=== PATIENT | male | born 1975 | race Caucasian/White ===

== ENCOUNTER 2017-04-26 18:31 | Inpatient (IN) | payer OTHER ==
[~2017-04-26] VITALS: Ht 172.7 cm; Wt 101.2 kg
[2017-04-26] MEDS ORDERED: FAMOTIDINE 20MG/2ML VIAL IV STA (22:36)
[2017-04-26] MEDS ORDERED: PANTOPRAZOLE SODIUM 40 MG/VIAL IV STA (22:36)
[2017-04-26] MEDS ORDERED: OCTREOTIDE ACETATE 50 MCG/ML 1ML IV ONE (22:45)
[2017-04-26 23:37] LABS: BASOPHILS % 0.7 % (0.0-2.0); EOSINOPHILS % 6.9 % (0.0-5.0); HEMATOCRIT. 26.8 % (42.0-52.0); HEMOGLOBIN. 9.4 g/dL (14.0-18.0); LYMPHOCYTES % 32.5 % (20.0-50.0); MEAN CORPUSCULAR HEMOGLOBIN 31.2 pg (28.0-32.0); MEAN CORPUSCULAR VOLUME 89.3 fL (80.0-94.0); MEAN PLATELET VOLUME 7.8 fl (7.4-10.4); NEUTROPHILS % 50.9 % (40.0-76.0); PLATELET 93 x1000/uL (130-400); RED CELL DISTRIBUTION WIDTH 13.4 % (11.6-14.6)
[2017-04-26 23:43] LABS: INR 1.1; PROTHROMBIN TIME 11.6 sec (9.4-11.6)
[2017-04-26 23:53] LABS: CARBON DIOXIDE 23 mEq/L (21-32); CHLORIDE 110 mEq/L (98-107); ETHANOL BLOOD < 10 mg/dL; TROPONIN I < 0.02 ng/mL (0.00-0.04)
[2017-04-27 05:15] LABS: CLARITY URINE CLEAR (CLEAR); COLOR URINE ORANGE (YELLOW); GLUCOSE URINE NEGATIVE (NEGATIVE); KETONES URINE NEGATIVE (NEGATIVE); LEUKOCYTE ESTERASE URINE NEGATIVE (NEGATIVE); NITRITE URINE NEGATIVE (NEGATIVE); OCCULT BLOOD URINE 3+ (NEGATIVE); PROTEIN URINE 2+ (NEGATIVE); UROBILINOGEN URINE 0.2 E.U./dL (0.2-1.0)
[2017-04-27 06:14] LABS: *AMPHETAMINES SCREEN URINE NEGATIVE (NEGATIVE); *BARBITURATES SCREEN URINE NEGATIVE (NEGATIVE); *BENZODIAZEPINES SCREEN URINE NEGATIVE (NEGATIVE); *COCAINE SCREEN URINE NEGATIVE (NEGATIVE); CANNABINOID URINE SCREEN NEGATIVE (NEGATIVE); METHADONE URINE SCREEN NEGATIVE (NEGATIVE); OPIATES URINE SCREEN NEGATIVE (NEGATIVE); PHENCYCLIDINE URINE SCREEN NEGATIVE (NEGATIVE)
[2017-04-27 08:20] VITALS: BP 157/72
[2017-04-27] MEDS ORDERED: PANTOPRAZOLE SODIUM 40 MG/VIAL IV SCH (10:15)
[2017-04-27 10:44] LABS: HEMATOCRIT 27.2 % (42.0-52.0); HEMOGLOBIN 9.5 g/dL (14.0-18.0)
[2017-04-27 10:48] LABS: *AMPHETAMINES SCREEN URINE NEGATIVE (NEGATIVE); *BARBITURATES SCREEN URINE NEGATIVE (NEGATIVE); *BENZODIAZEPINES SCREEN URINE NEGATIVE (NEGATIVE); *COCAINE SCREEN URINE NEGATIVE (NEGATIVE); CANNABINOID URINE SCREEN NEGATIVE (NEGATIVE); METHADONE URINE SCREEN NEGATIVE (NEGATIVE); OPIATES URINE SCREEN NEGATIVE (NEGATIVE); PHENCYCLIDINE URINE SCREEN NEGATIVE (NEGATIVE)
[2017-04-27 12:00] VITALS: BP 152/82
[2017-04-27 12:46] LABS: HEPATITIS B SURFACE ANTIGEN NEGATIVE
[2017-04-27 13:12] LABS: HEPATITIS B CORE AB IGM NEGATIVE
[2017-04-27 13:14] LABS: HEPATITIS A AB IGM NEGATIVE (NEGATIVE)
[2017-04-27] MEDS ORDERED: SODIUM CHLORIDE 0.9% 10ML VIAL ONE (13:56)
[2017-04-27 16:00] VITALS: BP 167/81
[2017-04-27] MEDS ORDERED: FENTANYL CITRATE/PF 50MCG/ML 2ML VIAL ONE (17:39)
[2017-04-27] MEDS ORDERED: SIMETHICONE 40 MG/0.6 ML 30ML ONE (17:39)
[2017-04-27] MEDS ORDERED: MIDAZOLAM HCL 5 MG/5 ML VIAL ONE (17:39)
[2017-04-27] MEDS ORDERED: MIDAZOLAM HCL 2 MG/2 ML VIAL IV PRN (17:53)
[2017-04-27] MEDS ORDERED: FENTANYL CITRATE/PF 50MCG/ML 2ML VIAL IV PRN (17:53)
[2017-04-27] MEDS ORDERED: OMEPRAZOLE 20MG CAPSULE EXTENDED RELEASE PO SCH (18:30)
[2017-04-27 20:00] VITALS: BP 153/69
[2017-04-27 20:01] LABS: HEMATOCRIT 27.7 % (42.0-52.0); HEMOGLOBIN 9.7 g/dL (14.0-18.0)
[2017-04-27] MEDS: CLOTRIMAZOLE 1% CREAM 30GM TOP SCH (21:04)
[2017-04-28] VITALS: BP 145/72
[2017-04-28 04:00] VITALS: BP 147/77
[2017-04-28] MEDS ORDERED: OMEPRAZOLE 20MG CAPSULE EXTENDED RELEASE PO SCH (07:10)
[2017-04-28 07:12] LABS: AMMONIA 27 uMol/L (<32)
[2017-04-28] MEDS ORDERED: ACETAMINOPHEN 325MG TABLET PO PRN (07:30)
[2017-04-28 07:44] LABS: BASOPHILS % 0.5 % (0.0-2.0); EOSINOPHILS % 5.2 % (0.0-5.0); HEMATOCRIT. 27.3 % (42.0-52.0); HEMOGLOBIN. 9.4 g/dL (14.0-18.0); MEAN CORPUSCULAR HEMOGLOBIN 30.8 pg (28.0-32.0); MEAN PLATELET VOLUME 8.5 fl (7.4-10.4); MONOCYTES % 8.4 % (2.0-8.0); NEUTROPHILS % 67.9 % (40.0-76.0); PLATELET 96 x1000/uL (130-400); RED BLOOD CELL COUNT 3.07 mill/uL (4.7-6.1); RED CELL DISTRIBUTION WIDTH 13.5 % (11.6-14.6)
[2017-04-28 08:00] VITALS: BP 139/88
[2017-04-28] MEDS: CLOTRIMAZOLE 1% CREAM 30GM TOP SCH (08:16)
[2017-04-28] MEDS ORDERED: OMEP20CA10 PO (10:48)
[2017-04-28] MEDS ORDERED: CLOT15CR2 TOP (10:48)
[2017-04-28 12:00] VITALS: BP 126/66
== END 2017-04-28 13:10 | disposition home or self-care (01) | DRG 241 ==
LOC: ER 18:31 → 8WST 23:20 → ENRESERV 04-27 07:09 → 8WST 04-27 09:24
PROVIDERS: ADMIT Internal Medicine; ATTEND Internal Medicine
PROC: 0DB68ZX Excision of Stomach, Via Natural or Artificial Opening Endoscopic, Diagnostic (ICD-10-PCS; principal; 2017-04-27 18:00)
DX: K29.01 Acute gastritis with bleeding (principal); N17.9 Acute kidney failure, unspecified; E44.0 Moderate protein-calorie malnutrition; K74.60 Unspecified cirrhosis of liver; K72.90 Hepatic failure, unspecified without coma; D64.9 Anemia, unspecified; N18.9 Chronic kidney disease, unspecified; G40.909 Epilepsy, unspecified, not intractable, without status epilepticus; F10.21 Alcohol dependence, in remission; F17.200 Nicotine dependence, unspecified, uncomplicated; Z79.899 Other long term (current) drug therapy; Z87.11 Personal history of peptic ulcer disease; Z68.39 Body mass index [BMI] 39.0-39.9, adult
CPT/HCPCS: 36415; 71010; 74176; 80048; 80053; 80076; 80305; 81001; 82140; 82270; 83605; 83690; 83880; 84484; 85014; 85018; 85025; 85044; 85610; 86677; 86705; 86709; 86803; 86850; 86900; 87340; 93005; 93970; 96374; 96375; 97116; 97162; 99285; A4216; C9113; G0482; J2250; J2354; J3010; J3490

== ENCOUNTER 2018-08-26 18:51 | Inpatient (IN) | payer OTHER ==
[~2018-08-26] VITALS: Ht 170.2 cm; Wt 91.2 kg
[~2018-08-26 18:51] MED LIST: AMLO5TAB88 PO; CLOT15CR2 TOP; FOLI-43 PO; KEPPSOL PO; LORA2VIA34 IM; NICO-786 TD; OMEP20CA10 PO; THIA100T72 PO
[2018-08-26 23:52] LABS: CLARITY URINE TURBID (CLEAR); COLOR URINE RED (YELLOW); KETONES URINE 1+ (NEGATIVE); LEUKOCYTE ESTERASE URINE 1+ (NEGATIVE); NITRITE URINE NEGATIVE (NEGATIVE); OCCULT BLOOD URINE 3+ (NEGATIVE); PROTEIN URINE 3+ (NEGATIVE); SPECIFIC GRAVITY URINE 1.014 (1.005-1.030)
[2018-08-27] MEDS ORDERED: ACETAMINOPHEN 325MG TABLET PO NR (00:45)
[2018-08-27] MEDS ORDERED: SODIUM CHLORIDE 0.9% 1000ML BAG (SEPSIS BOLUS) IV NR (00:45)
[2018-08-27] MEDS ORDERED: KETOROLAC 15MG/ML VIAL IV NR (00:45)
[2018-08-27] MEDS ORDERED: CEFTRIAXONE 1 G PREMIX 50 ML IV NR (01:30)
[2018-08-27] MEDS ORDERED: FLUCONAZOLE 50MG TABLET PO NR (01:30)
[2018-08-27 01:51] LABS: BASOPHILS % 0.3 % (0.0-2.0); HEMATOCRIT. 29.8 % (42.0-52.0); HEMOGLOBIN. 10.5 g/dL (14.0-18.0); LYMPHOCYTES % 10.7 % (20.0-50.0); MEAN CORPUSCULAR HEMOGLOBIN 32.1 pg (28.0-32.0); MEAN CORPUSCULAR VOLUME 91.4 fL (80.0-94.0); MONOCYTES % 12.6 % (2.0-8.0); NEUTROPHILS % 76.4 % (40.0-76.0); PLATELET 68 x1000/uL (130-400); RED BLOOD CELL COUNT 3.26 mill/uL (4.7-6.1); RED CELL DISTRIBUTION WIDTH 13.8 % (11.6-14.6)
[2018-08-27 02:01] LABS: INR 1.2; PROTHROMBIN TIME 12.1 sec (9.1-11.1)
[2018-08-27 02:02] LABS: CHLORIDE 111 mEq/L (98-107)
[2018-08-27 06:42] VITALS: BP 137/72
[2018-08-27 08:00] VITALS: BP 136/72
[2018-08-27 08:07] VITALS: BP 136/72
[2018-08-27] MEDS ORDERED: ONDANSETRON HCL 4MG/2ML INJ IV PRN (09:45)
[2018-08-27 11:36] LABS: *AMPHETAMINES SCREEN URINE NEGATIVE (NEGATIVE); *BARBITURATES SCREEN URINE NEGATIVE (NEGATIVE); *BENZODIAZEPINES SCREEN URINE NEGATIVE (NEGATIVE); *COCAINE SCREEN URINE NEGATIVE (NEGATIVE)
[2018-08-27 11:37] VITALS: BP 148/67
[2018-08-27 11:37] LABS: CANNABINOID URINE SCREEN NEGATIVE (NEGATIVE); METHADONE URINE SCREEN NEGATIVE (NEGATIVE); OPIATES URINE SCREEN NEGATIVE (NEGATIVE); PHENCYCLIDINE URINE SCREEN NEGATIVE (NEGATIVE)
[2018-08-27] MEDS: SODIUM CHLORIDE 0.45% 1,000 ML IV SCH (14:48)
[2018-08-27 15:36] VITALS: BP 149/76
[2018-08-27] MEDS: ACETAMINOPHEN 325MG TABLET PO PRN (15:48)
[2018-08-27 20:04] VITALS: BP 126/57
[2018-08-27] MEDS: LEVETIRACETAM 500MG TABLET PO SCH (21:37)
[2018-08-27] MEDS ORDERED: CEFTRIAXONE 1 G PREMIX 50 ML IV SCH (23:00)
[2018-08-28 00:40] VITALS: BP 150/68
[2018-08-28 04:00] VITALS: BP 135/68
[2018-08-28] MEDS: SODIUM CHLORIDE 0.45% 1,000 ML IV SCH ×2 (04:12→09:00)
[2018-08-28 06:55] LABS: HEMATOCRIT. 29.2 % (42.0-52.0); HEMOGLOBIN. 10.3 g/dL (14.0-18.0); MEAN CORPUSCULAR HEMOGLOBIN 31.9 pg (28.0-32.0); MEAN CORPUSCULAR VOLUME 90.4 fL (80.0-94.0); MEAN PLATELET VOLUME 8.1 fl (7.4-10.4); PLATELET 61 x1000/uL (130-400); RED BLOOD CELL COUNT 3.23 mill/uL (4.7-6.1); RED CELL DISTRIBUTION WIDTH 13.9 % (11.6-14.6)
[2018-08-28 07:03] LABS: CHLORIDE 111 mEq/L (98-107)
[2018-08-28 08:41] VITALS: BP 134/69
[2018-08-28] MEDS: LEVETIRACETAM 500MG TABLET PO SCH (09:20)
[2018-08-28] MEDS: ACETAMINOPHEN 325MG TABLET PO PRN (09:20)
[2018-08-28 12:16] VITALS: BP 141/64
[2018-08-28 13:00] LABS: ATYPICAL LYMPHOCYTES 2; PLATELET ESTIMATE DECREASED
[2018-08-28 16:18] VITALS: BP 117/57
[2018-08-28 16:29] VITALS: BP 117/57
== END 2018-08-28 17:44 | disposition home or self-care (01) | DRG 720 ==
LOC: ER 18:51 → 6WST 08-27 02:25 → EDBEDREQSVC 08-27 02:53 → EDBEDREQTM 08-27 02:53 → EDBEDREQ 08-27 02:53 → ENRESERV 08-27 05:30
PROVIDERS: ADMIT Internal Medicine; ATTEND Internal Medicine
DX: A41.9 Sepsis, unspecified organism (principal); N17.0 Acute kidney failure with tubular necrosis; D61.818 Other pancytopenia; E44.0 Moderate protein-calorie malnutrition; E87.8 Other disorders of electrolyte and fluid balance, not elsewhere classified; F10.21 Alcohol dependence, in remission; G40.909 Epilepsy, unspecified, not intractable, without status epilepticus; M94.0 Chondrocostal junction syndrome [Tietze]; N39.0 Urinary tract infection, site not specified; K70.30 Alcoholic cirrhosis of liver without ascites; Z87.440 Personal history of urinary (tract) infections; Z68.31 Body mass index [BMI] 31.0-31.9, adult
CPT/HCPCS: 36415; 71045; 80048; 80305; 83605; 84145; 84484; 87804; 93970; 96365; 96375; 99291; J0696; J1885

== ENCOUNTER 2018-10-26 11:13 | Inpatient (IN) | payer MEDICAID, OTHER ==
[~2018-10-26] VITALS: Ht 170.2 cm; Wt 93.4 kg
[~2018-10-26 11:13] MED LIST changes: -NICO-786 TD
[2018-10-26] MEDS ORDERED: LORAZEPAM 2MG/ML CPJ IV STA (12:02)
[2018-10-26 12:27] LABS: BASOPHILS % 1.1 % (0.0-2.0); EOSINOPHILS % 5.7 % (0.0-5.0); HEMATOCRIT. 30.2 % (42.0-52.0); HEMOGLOBIN. 10.2 g/dL (14.0-18.0); LYMPHOCYTES % 23.1 % (20.0-50.0); MEAN CORPUSCULAR HEMOGLOBIN 31.7 pg (28.0-32.0); MEAN CORPUSCULAR VOLUME 93.7 fL (80.0-94.0); MEAN PLATELET VOLUME 7.6 fl (7.4-10.4); MONOCYTES % 10.7 % (2.0-8.0); NEUTROPHILS % 59.4 % (40.0-76.0); PLATELET 134 x1000/uL (130-400); RED BLOOD CELL COUNT 3.22 mill/uL (4.7-6.1); RED CELL DISTRIBUTION WIDTH 14.4 % (11.6-14.6)
[2018-10-26 12:28] LABS: CLARITY URINE CLEAR (CLEAR); COLOR URINE YELLOW (YELLOW); KETONES URINE NEGATIVE (NEGATIVE); LEUKOCYTE ESTERASE URINE NEGATIVE (NEGATIVE); NITRITE URINE NEGATIVE (NEGATIVE); OCCULT BLOOD URINE 3+ (NEGATIVE); PH URINE 7.5 (4.5-8.0); PROTEIN URINE TRACE (NEGATIVE); SPECIFIC GRAVITY URINE 1.007 (1.005-1.030); UROBILINOGEN URINE 0.2 E.U./dL (0.2-1.0)
[2018-10-26 12:33] LABS: CHLORIDE 110 mEq/L (98-107)
[2018-10-26 12:37] LABS: ETHANOL BLOOD < 10 mg/dL
[2018-10-26 12:47] LABS: *AMPHETAMINES SCREEN URINE NEGATIVE (NEGATIVE); *BARBITURATES SCREEN URINE NEGATIVE (NEGATIVE); *BENZODIAZEPINES SCREEN URINE NEGATIVE (NEGATIVE); *COCAINE SCREEN URINE NEGATIVE (NEGATIVE)
[2018-10-26 12:48] LABS: CANNABINOID URINE SCREEN NEGATIVE (NEGATIVE); METHADONE URINE SCREEN NEGATIVE (NEGATIVE); OPIATES URINE SCREEN NEGATIVE (NEGATIVE); PHENCYCLIDINE URINE SCREEN NEGATIVE (NEGATIVE)
[2018-10-26 16:52] VITALS: BP 126/64
[2018-10-26 16:56] VITALS: BP 126/64
[2018-10-26] MEDS ORDERED: LEVE1000 PO (17:24)
[2018-10-26] MEDS ORDERED: LORAZEPAM 2MG/ML CPJ IV PRN (17:45)
[2018-10-26] MEDS ORDERED: ONDANSETRON HCL 4MG/2ML INJ IV PRN (17:45)
[2018-10-26] MEDS ORDERED: CLONIDINE 0.1MG TABLET PO PRN (17:45)
[2018-10-26 20:00] VITALS: BP 133/61
[2018-10-26] MEDS: LEVETIRACETAM 500MG/5ML CUP PO SCH (21:09)
[2018-10-27 00:01] VITALS: BP 122/58
[2018-10-27 04:00] VITALS: BP 125/67
[2018-10-27] MEDS: ACETAMINOPHEN 325MG TABLET PO PRN (05:42)
[2018-10-27 05:57] LABS: BASOPHILS % 0.8 % (0.0-2.0); EOSINOPHILS % 5.6 % (0.0-5.0); HEMATOCRIT. 27.2 % (42.0-52.0); HEMOGLOBIN. 9.4 g/dL (14.0-18.0); LYMPHOCYTES % 27.2 % (20.0-50.0); MEAN CORPUSCULAR HEMOGLOBIN 31.8 pg (28.0-32.0); MEAN CORPUSCULAR VOLUME 92.7 fL (80.0-94.0); MEAN PLATELET VOLUME 7.7 fl (7.4-10.4); MONOCYTES % 9.3 % (2.0-8.0); NEUTROPHILS % 57.1 % (40.0-76.0); PLATELET 123 x1000/uL (130-400); RED BLOOD CELL COUNT 2.94 mill/uL (4.7-6.1); RED CELL DISTRIBUTION WIDTH 14.6 % (11.6-14.6)
[2018-10-27 06:35] LABS: CHLORIDE 110 mEq/L (98-107)
[2018-10-27 08:00] VITALS: BP 120/52
[2018-10-27] MEDS: LEVETIRACETAM 500MG/5ML CUP PO SCH ×2 (09:22→20:56)
[2018-10-27 12:00] VITALS: BP 110/55
[2018-10-27 16:13] VITALS: BP 109/48
[2018-10-27] MEDS: THIAMINE HCL 100MG TABLET PO SCH (18:46)
[2018-10-27 20:00] VITALS: BP 127/60
[2018-10-27] MEDS: LAMOTRIGINE 25MG TABLET PO SCH (20:56)
[2018-10-28 00:05] VITALS: BP 121/62
[2018-10-28] MEDS: ACETAMINOPHEN 325MG TABLET PO PRN (02:10)
[2018-10-28 04:00] VITALS: BP 130/82
[2018-10-28 07:00] LABS: BASOPHILS % 0.7 % (0.0-2.0); EOSINOPHILS % 5.4 % (0.0-5.0); HEMOGLOBIN. 9.7 g/dL (14.0-18.0); LYMPHOCYTES % 21.7 % (20.0-50.0); MEAN CORPUSCULAR HEMOGLOBIN 32.3 pg (28.0-32.0); MEAN CORPUSCULAR VOLUME 93.1 fL (80.0-94.0); MEAN PLATELET VOLUME 8.3 fl (7.4-10.4); MONOCYTES % 9.5 % (2.0-8.0); NEUTROPHILS % 62.7 % (40.0-76.0); PLATELET 130 x1000/uL (130-400); RED BLOOD CELL COUNT 3.01 mill/uL (4.7-6.1); RED CELL DISTRIBUTION WIDTH 14.4 % (11.6-14.6)
[2018-10-28 07:06] LABS: CHLORIDE 109 mEq/L (98-107)
[2018-10-28 08:00] VITALS: BP 130/62
[2018-10-28] MEDS: LEVETIRACETAM 500MG/5ML CUP PO SCH (08:52)
[2018-10-28] MEDS: THIAMINE HCL 100MG TABLET PO SCH (08:52)
[2018-10-28] MEDS: LAMOTRIGINE 25MG TABLET PO SCH (08:53)
[2018-10-28 12:12] VITALS: BP 128/66
[2018-10-28 16:38] VITALS: BP 116/52
[2018-10-28 17:05] VITALS: BP 116/52
== END 2018-10-28 17:52 | disposition home or self-care (01) | DRG 53 ==
LOC: ER 11:13 → 7WST 14:06 → EDBEDREQ 14:17 → ENRESERV 14:58
PROVIDERS: ADMIT Internal Medicine; ATTEND Internal Medicine
DX: G40.909 Epilepsy, unspecified, not intractable, without status epilepticus (principal); E43 Unspecified severe protein-calorie malnutrition; E87.8 Other disorders of electrolyte and fluid balance, not elsewhere classified; D64.9 Anemia, unspecified; F10.21 Alcohol dependence, in remission; I10 Essential (primary) hypertension; F17.210 Nicotine dependence, cigarettes, uncomplicated; Z87.820 Personal history of traumatic brain injury; Z68.32 Body mass index [BMI] 32.0-32.9, adult
CPT/HCPCS: 36415; 71045; 80048; 80305; 80307; 80320; 80329; 82140; 82962; 83605; 83880; 84484; 93005; 96374; 97162; 99285; J2060; G0480

== ENCOUNTER 2018-11-05 16:07 | Emergency (ER) | payer OTHER ==
[~2018-11-05] VITALS: Ht 177.8 cm; Wt 85.0 kg
[~2018-11-05 16:07] MED LIST changes: -AMLO5TAB88 PO; -CLOT15CR2 TOP; -FOLI-43 PO; -KEPPSOL PO; +LEVE1000 PO; -LORA2VIA34 IM; -OMEP20CA10 PO; -THIA100T72 PO
[2018-11-05] MEDS ORDERED: SODIUM CHLORIDE 0.9% 1,000 ML IV ONE (16:24)
[2018-11-05] MEDS ORDERED: LEVETIRACETAM 1000MG/100ML 100 ML IV ONE (16:30)
[2018-11-05 17:10] LABS: BASOPHILS % 0.8 % (0.0-2.0); HEMATOCRIT. 29.9 % (42.0-52.0); HEMOGLOBIN. 10.3 g/dL (14.0-18.0); LYMPHOCYTES % 28.3 % (20.0-50.0); MEAN CORPUSCULAR HEMOGLOBIN 32.1 pg (28.0-32.0); MEAN CORPUSCULAR VOLUME 93.2 fL (80.0-94.0); MEAN PLATELET VOLUME 7.9 fl (7.4-10.4); MONOCYTES % 10.3 % (2.0-8.0); NEUTROPHILS % 53.6 % (40.0-76.0); PLATELET 122 x1000/uL (130-400); RED BLOOD CELL COUNT 3.21 mill/uL (4.7-6.1)
[2018-11-05 17:14] LABS: CLARITY URINE CLEAR (CLEAR); COLOR URINE YELLOW (YELLOW); KETONES URINE NEGATIVE (NEGATIVE); LEUKOCYTE ESTERASE URINE TRACE (NEGATIVE); NITRITE URINE NEGATIVE (NEGATIVE); OCCULT BLOOD URINE 3+ (NEGATIVE); PROTEIN URINE 1+ (NEGATIVE); SPECIFIC GRAVITY URINE 1.015 (1.005-1.030)
[2018-11-05 17:17] LABS: CHLORIDE 109 mEq/L (98-107); INR 1.1; PROTHROMBIN TIME 10.8 sec (9.1-11.1)
[2018-11-05 17:20] LABS: ETHANOL BLOOD < 10 mg/dL
[2018-11-05 17:23] LABS: LDL CHOLESTEROL 51 mg/dL (5-100)
[2018-11-05 17:24] LABS: *AMPHETAMINES SCREEN URINE NEGATIVE (NEGATIVE); *BARBITURATES SCREEN URINE NEGATIVE (NEGATIVE); *BENZODIAZEPINES SCREEN URINE NEGATIVE (NEGATIVE); *COCAINE SCREEN URINE NEGATIVE (NEGATIVE); CANNABINOID URINE SCREEN NEGATIVE (NEGATIVE); METHADONE URINE SCREEN NEGATIVE (NEGATIVE); OPIATES URINE SCREEN NEGATIVE (NEGATIVE); PHENCYCLIDINE URINE SCREEN NEGATIVE (NEGATIVE)
[2018-11-05] MEDS ORDERED: ASPIRIN 325MG TABLET PO ONE (17:45)
[2018-11-05] MEDS ORDERED: MORPHINE SULFATE 4 MG/ML CPJ (NOT FOR IM USE) IV ONE (20:15)
[2018-11-05] MEDS ORDERED: IOHEXOL-350 100 ML BOTTLE ONE (21:21)
[2018-11-05 22:52] VITALS: BP 122/98
== END 2018-11-05 23:17 | disposition short-term general hospital (02) ==
LOC: ER 16:08 → CANBEDREQ 11-06 01:19
DX: I67.82 Cerebral ischemia (principal); G81.94 Hemiplegia, unspecified affecting left nondominant side; R56.9 Unspecified convulsions; I10 Essential (primary) hypertension
CPT/HCPCS: 36415; 70450; 70496; 70498; 71045; 80053; 80305; 80320; 81003; 82962; 83721; 84484; 85025; 85610; 93005; 96365; 96366; 96375; 99291; J1953; J2270; J7030; Q9967; G0480

== ENCOUNTER 2019-06-06 17:25 | Emergency (ER) | payer OTHER ==
[~2019-06-06] VITALS: Ht 162.6 cm; Wt 89.0 kg
[2019-06-06] MEDS ORDERED: SODIUM CHLORIDE 0.9% 1,000 ML IV ONE (20:22)
[2019-06-06 20:42] LABS: BASOPHILS % 0.4 % (0.0-2.0); EOSINOPHILS % 3.6 % (0.0-5.0); HEMATOCRIT. 35.9 % (42.0-52.0); HEMOGLOBIN. 12.5 g/dL (14.0-18.0); LYMPHOCYTES % 14.7 % (20.0-50.0); MEAN CORPUSCULAR VOLUME 92.3 fL (80.0-94.0); MEAN PLATELET VOLUME 8.1 fl (7.4-10.4); MONOCYTES % 10.3 % (2.0-8.0); PLATELET 97 x1000/uL (130-400); RED BLOOD CELL COUNT 3.89 mill/uL (4.7-6.1); RED CELL DISTRIBUTION WIDTH 13.2 % (11.6-14.6)
[2019-06-06 20:47] LABS: CHLORIDE 112 mEq/L (98-107)
[2019-06-06 20:49] LABS: INR 1.1; PROTHROMBIN TIME 11.4 sec (9.6-11.0)
[2019-06-06 20:55] LABS: CLARITY URINE CLOUDY (CLEAR); COLOR URINE RED (YELLOW); KETONES URINE NEGATIVE (NEGATIVE); LEUKOCYTE ESTERASE URINE 1+ (NEGATIVE); NITRITE URINE NEGATIVE (NEGATIVE); OCCULT BLOOD URINE 3+ (NEGATIVE); PROTEIN URINE 3+ (NEGATIVE); SPECIFIC GRAVITY URINE 1.016 (1.005-1.030); UROBILINOGEN URINE 0.2 E.U./dL (0.2-1.0)
[2019-06-06] MEDS ORDERED: IBUPROFEN 600MG TABLET PO ONE (21:15)
[2019-06-06] MEDS ORDERED: CEFTRIAXONE SODIUM 250 MG/VIAL IM ONE (22:15)
[2019-06-06 23:17] VITALS: BP 131/94
[2019-07-05] MEDS ORDERED: GABA-531 MT (11:02)
[2019-07-05] MEDS ORDERED: CLOP75TA4 MT (11:02)
[2019-07-05] MEDS ORDERED: LEVE1000 MT (11:02)
== END 2019-06-06 23:18 | disposition home or self-care (01) ==
LOC: ER 17:25
DX: N12 Tubulo-interstitial nephritis, not specified as acute or chronic (principal); I10 Essential (primary) hypertension; Z98.890 Other specified postprocedural states; F17.290 Nicotine dependence, other tobacco product, uncomplicated
CPT/HCPCS: 36415; 76770; 80053; 81003; 83690; 85025; 85610; 96372; 99284; 99406; J0696; J7030; Z7610

== ENCOUNTER 2020-05-15 18:10 | Emergency (ER) | payer OTHER ==
[~2020-05-15] VITALS: Ht 170.2 cm; Wt 97.0 kg
[~2020-05-15 18:10] MED LIST changes: +CLOP75TA4 MT; +GABA-531 MT; +LEVE1000 MT
[2020-05-15 19:34] LABS: BASOPHILS % 0.5 % (0.0-2.0); EOSINOPHILS % 3.9 % (0.0-5.0); HEMATOCRIT. 33.9 % (42.0-52.0); HEMOGLOBIN. 11.9 g/dL (14.0-18.0); LYMPHOCYTES % 26.3 % (20.0-50.0); MEAN CORPUSCULAR HEMOGLOBIN 32.9 pg (28.0-32.0); MEAN CORPUSCULAR VOLUME 93.8 fL (80.0-94.0); MEAN PLATELET VOLUME 8.2 fl (7.4-10.4); MONOCYTES % 10.9 % (2.0-8.0); NEUTROPHILS % 58.4 % (40.0-76.0); PLATELET 141 x1000/uL (130-400); RED BLOOD CELL COUNT 3.62 mill/uL (4.7-6.1); RED CELL DISTRIBUTION WIDTH 13.2 % (11.6-14.6)
[2020-05-15 19:39] LABS: CHLORIDE 110 mEq/L (98-107); INR 1.1; PROTHROMBIN TIME 11.3 sec (9.6-11.0)
[2020-05-15 19:43] LABS: ETHANOL BLOOD < 10 mg/dL
[2020-05-15 19:43] LABS: CLARITY URINE CLEAR (CLEAR); COLOR URINE YELLOW (YELLOW); KETONES URINE NEGATIVE (NEGATIVE); LEUKOCYTE ESTERASE URINE TRACE (NEGATIVE); NITRITE URINE NEGATIVE (NEGATIVE); OCCULT BLOOD URINE 3+ (NEGATIVE); PROTEIN URINE 3+ (NEGATIVE); SPECIFIC GRAVITY URINE 1.022 (1.005-1.030)
[2020-05-15 19:59] LABS: *AMPHETAMINES SCREEN URINE NEGATIVE (NEGATIVE); *BARBITURATES SCREEN URINE NEGATIVE (NEGATIVE); *BENZODIAZEPINES SCREEN URINE PRESUMTIVE POSITIVE (NEGATIVE)
[2020-05-15 20:00] LABS: *COCAINE SCREEN URINE NEGATIVE (NEGATIVE); CANNABINOID URINE SCREEN NEGATIVE (NEGATIVE); METHADONE URINE SCREEN NEGATIVE (NEGATIVE); OPIATES URINE SCREEN NEGATIVE (NEGATIVE); PHENCYCLIDINE URINE SCREEN NEGATIVE (NEGATIVE)
[2020-05-15] MEDS ORDERED: SODIUM CHLORIDE 0.9% 1,000 ML IV ONE (22:00)
[2020-05-16 01:44] VITALS: BP 171/83
== END 2020-05-16 02:35 | disposition short-term general hospital (02) ==
LOC: ER 18:10
DX: R41.82 Altered mental status, unspecified (principal); R56.9 Unspecified convulsions; Z98.890 Other specified postprocedural states
CPT/HCPCS: 36415; 70450; 71045; 74176; 80053; 80305; 80320; 81003; 85025; 85610; 93005; 96360; 96361; 99285; J7030; G0480

== ENCOUNTER 2022-08-12 09:24 | Inpatient (IN) | payer MEDICAID, OTHER ==
[~2022-08-12] VITALS: Ht 160 cm; Wt 103.9 kg
[~2022-08-12 09:24] MED LIST changes: +CLOP-31 MT; -CLOP75TA4 MT; -GABA-531 MT; +GABA-532 MT
[2022-08-12 12:03] LABS: BASOPHILS % 0.7 % (0.0-2.0); EOSINOPHILS % 6.1 % (0.0-5.0); HEMATOCRIT. 29.2 % (42.0-52.0); HEMOGLOBIN. 10.3 g/dL (14.0-18.0); LYMPHOCYTES % 17.9 % (20.0-50.0); MEAN CORPUSCULAR HEMOGLOBIN 32.8 pg (28.0-32.0); MEAN CORPUSCULAR VOLUME 92.5 fL (80.0-94.0); MEAN PLATELET VOLUME 6.6 fl (7.4-10.4); MONOCYTES % 12.5 % (2.0-8.0); NEUTROPHILS % 62.8 % (40.0-76.0); PLATELET 138 x1000/uL (130-400); RED BLOOD CELL COUNT 3.15 mill/uL (4.7-6.1); RED CELL DISTRIBUTION WIDTH 14.8 % (11.6-14.6)
[2022-08-12 12:10] LABS: CHLORIDE 111 mEq/L (98-107)
[2022-08-12 12:23] LABS: INR 1.1; PARTIAL THROMBOPLASTIN TIME 29.5 sec (23.4-31.0); PROTHROMBIN TIME 11.4 sec (9.6-11.0)
[2022-08-12] MEDS ORDERED: FUROSEMIDE 40MG/4ML VIAL IVP ONE (12:30)
[2022-08-13] VITALS (7 sets, daily range): BP systolic 124–154; BP diastolic 60–88
[2022-08-13] MEDS ORDERED: LEVE1000 PO (00:51)
[2022-08-13] MEDS: ACETAMINOPHEN 325MG TABLET PO PRN ×2 (06:24→09:09)
[2022-08-13 06:55] LABS: BASOPHILS % 0.7 % (0.0-2.0); EOSINOPHILS % 6.7 % (0.0-5.0); HEMATOCRIT. 26.6 % (42.0-52.0); HEMOGLOBIN. 9.5 g/dL (14.0-18.0); LYMPHOCYTES % 20.5 % (20.0-50.0); MEAN CORPUSCULAR HEMOGLOBIN 32.3 pg (28.0-32.0); MEAN CORPUSCULAR VOLUME 90.7 fL (80.0-94.0); MEAN PLATELET VOLUME 6.8 fl (7.4-10.4); MONOCYTES % 12.5 % (2.0-8.0); NEUTROPHILS % 59.6 % (40.0-76.0); PLATELET 109 x1000/uL (130-400); RED BLOOD CELL COUNT 2.93 mill/uL (4.7-6.1); RED CELL DISTRIBUTION WIDTH 14.7 % (11.6-14.6)
[2022-08-13] MEDS ORDERED: FUROSEMIDE 40MG TABLET PO SCH (09:00)
[2022-08-13] MEDS: LEVETIRACETAM 500MG TABLET PO SCH ×2 (09:08→21:02)
[2022-08-13] MEDS: PANTOPRAZOLE SODIUM 40 MG/VIAL IV SCH (09:10)
[2022-08-13] MEDS: SPIRONOLACTONE 50MG TABLET PO SCH (09:10)
[2022-08-13] MEDS: FUROSEMIDE 40MG/4ML VIAL IVP SCH ×2 (09:19→18:35)
[2022-08-13] MEDS ORDERED: CEFTRIAXONE 1 G PREMIX 50 ML IV SCH (13:15)
[2022-08-13] MEDS ORDERED: CEFTRIAXONE 1,000 MG in DEXTROSE 5% WATER 50 ML IV SCH (15:00)
[2022-08-13 15:13] LABS: CLARITY URINE CLEAR (CLEAR); COLOR URINE YELLOW (YELLOW); KETONES URINE NEGATIVE (NEGATIVE); LEUKOCYTE ESTERASE URINE NEGATIVE (NEGATIVE); NITRITE URINE NEGATIVE (NEGATIVE); OCCULT BLOOD URINE 3+ (NEGATIVE); PROTEIN URINE 1+ (NEGATIVE); SPECIFIC GRAVITY URINE 1.011 (1.005-1.030); UROBILINOGEN URINE 0.2 E.U./dL (0.2-1.0)
[2022-08-13] MEDS: CEFTRIAXONE 1,000 MG in DEXTROSE 5% WATER 50 ML IV SCH (21:02)
[2022-08-14] VITALS: BP 156/98
[2022-08-14] MEDS: ACETAMINOPHEN 325MG TABLET PO PRN ×3 (00:52→23:46)
[2022-08-14 04:00] VITALS: BP 159/88
[2022-08-14 08:00] VITALS: BP 147/75
[2022-08-14] MEDS: SPIRONOLACTONE 50MG TABLET PO SCH (09:00)
[2022-08-14] MEDS: LEVETIRACETAM 500MG TABLET PO SCH ×2 (11:15→20:47)
[2022-08-14] MEDS: PANTOPRAZOLE SODIUM 40 MG/VIAL IV SCH (11:17)
[2022-08-14] MEDS: FUROSEMIDE 40MG/4ML VIAL IVP SCH ×2 (11:19→18:08)
[2022-08-14 12:00] VITALS: BP 135/70
[2022-08-14 16:00] VITALS: BP 158/79
[2022-08-14 20:00] VITALS: BP 164/97
[2022-08-14] MEDS: CEFTRIAXONE 1,000 MG in DEXTROSE 5% WATER 50 ML IV SCH (20:48)
[2022-08-15] VITALS: BP 150/72
[2022-08-15 04:00] VITALS: BP 160/83
[2022-08-15 08:00] VITALS: BP 161/92
[2022-08-15] MEDS: ACETAMINOPHEN 325MG TABLET PO PRN (08:05)
[2022-08-15] MEDS: PANTOPRAZOLE SODIUM 40 MG/VIAL IV SCH (08:05)
[2022-08-15] MEDS: LEVETIRACETAM 500MG TABLET PO SCH (08:05)
[2022-08-15] MEDS: FUROSEMIDE 40MG/4ML VIAL IVP SCH (08:05)
[2022-08-15] MEDS ORDERED: LIDOCAINE HCL 1% 10 MG/ML 10ML VIAL ONE (08:07)
[2022-08-15] MEDS ORDERED: SODIUM BICARBONATE 4% (2.4MEQ) 5ML VIAL IV ONE (08:07)
[2022-08-15] MEDS: SPIRONOLACTONE 50MG TABLET PO SCH (08:11)
[2022-08-15] MEDS ORDERED: FURO-151 MT (08:39)
[2022-08-15] MEDS ORDERED: ALD50 PO (08:39)
[2022-08-15 11:18] VITALS: BP 154/86
[2022-08-15 12:00] VITALS: BP 154/86
== END 2022-08-15 12:30 | disposition home or self-care (01) ==
LOC: ER 09:24 → EDBEDREQ 12:58 → EDBEDREQTM 15:56 → EDBEDREQ 15:56 → ENRESERV 22:36 → 7EST 23:40
PROVIDERS: ADMIT Internal Medicine; ATTEND Internal Medicine
PROC: 0W9G3ZZ Drainage of Peritoneal Cavity, Percutaneous Approach (ICD-10-PCS; principal; 2022-08-15)
DX: K74.60 Unspecified cirrhosis of liver (principal); R18.8 Other ascites; E87.70 Fluid overload, unspecified; G40.909 Epilepsy, unspecified, not intractable, without status epilepticus; D72.819 Decreased white blood cell count, unspecified; D64.9 Anemia, unspecified; Z20.822 Contact with and (suspected) exposure to COVID-19; E66.9 Obesity, unspecified; Z68.41 Body mass index [BMI] 40.0-44.9, adult; Z86.73 Personal history of transient ischemic attack (TIA), and cerebral infarction without residual deficits; Z79.02 Long term (current) use of antithrombotics/antiplatelets
CPT/HCPCS: 36415; 49083; 71045; 74176; 80048; 80053; 81003; 83880; 84484; 85025; 86850; 86900; 87426; 93005; 93970; 99285; C9113; J0696; J1940; J3490; J7060

== ENCOUNTER 2024-03-21 18:25 | Emergency (ER) | payer MEDICAID, OTHER ==
[~2024-03-21] VITALS: Ht 172.7 cm; Wt 91.0 kg
[~2024-03-21 18:25] MED LIST changes: +ALD50 PO; +FURO-151 MT
[2024-03-21 18:34] VITALS: O2SAT 97
[2024-03-21 19:45] LABS: BASOPHILS % 0.4 % (0.0-2.0); EOSINOPHILS % 2.9 % (0.0-5.0); HEMOGLOBIN. 12.6 g/dL (14.0-18.0); LYMPHOCYTES % 20.7 % (20.0-50.0); MEAN CORPUSCULAR HEMOGLOBIN 33.2 pg (28.0-32.0); MEAN CORPUSCULAR HGB CONC 34.1 g/dL (31.0-37.0); MEAN CORPUSCULAR VOLUME 97.4 fL (80.0-94.0); MEAN PLATELET VOLUME 7.4 fl (7.4-10.4); MONOCYTES % 12.5 % (2.0-8.0); NEUTROPHILS % 63.5 % (40.0-76.0); PLATELET 116 x1000/uL (130-400); RED BLOOD CELL COUNT 3.79 mill/uL (4.7-6.1); RED CELL DISTRIBUTION WIDTH 14.8 % (11.6-14.6); WHITE BLOOD COUNT 4.4 x1000/uL (4.5-11.0)
[2024-03-21 19:50] LABS: POTASSIUM 5.7 mEq/L (3.5-5.1)
[2024-03-21 19:51] LABS: CALCIUM 9.8 mg/dL (8.7-10.4)
[2024-03-21 20:24] LABS: CREATININE 7.7 mg/dL (0.6-1.3)
[2024-03-21] MEDS: DEXTROSE 50% WATER 50ML SYRINGE IV ONE (21:30)
[2024-03-21] MEDS ORDERED: CALCIUM GLUCONATE 1,000 MG in DEXT 5% WATER 100 ML IV ONE (21:30)
[2024-03-21] MEDS: ALBUTEROL (0.083%) 2.5MG/3ML NEB HHN SCH (21:30)
[2024-03-21] MEDS ORDERED: INSULIN REGULAR (HUMULIN R) 1000UNITS/10ML VIAL IV ONE (21:30)
[2024-03-22] MEDS: CALCIUM GLUCONATE 1GM PREMIX 50 ML IV NR (00:14)
[2024-03-22] MEDS: INSULIN REGULAR (HUMULIN R) 1000UNITS/10ML VIAL IV NR (00:15)
[2024-03-22] MEDS: DEXTROSE 50% WATER 50ML SYRINGE IV NR (00:16)
[2024-03-22 01:00] VITALS: BP 126/71; PULSE 61; RESP 13; TEMP 98.5
[2024-03-22 01:19] LABS: POTASSIUM 4.8 mEq/L (3.5-5.1)
== END 2024-03-22 02:17 | disposition home or self-care (01) ==
LOC: ER 20:42
DX: E87.5 Hyperkalemia (principal); I12.0 Hypertensive chronic kidney disease with stage 5 chronic kidney disease or end stage renal disease; N18.6 End stage renal disease; Z99.2 Dependence on renal dialysis; Z86.73 Personal history of transient ischemic attack (TIA), and cerebral infarction without residual deficits
CPT/HCPCS: 80048; 82962; 85025; 36415 ×2; 71045; 93005; 99285; 84132; 96365; 96375; J0610; J1815; J7060

== ENCOUNTER 2024-05-03 17:42 | Emergency (ER) | payer OTHER ==
[~2024-05-03] VITALS: Ht 167.6 cm; Wt 90.0 kg
[2024-05-03 17:44] VITALS: O2SAT 100
[2024-05-03 18:15] VITALS: BP 111/56; PULSE 67; RESP 18; TEMP 98.6; O2SAT 99
[2024-05-03 19:57] LABS: BASOPHILS % 0.6 % (0.0-2.0); EOSINOPHILS % 4.5 % (0.0-5.0); HEMATOCRIT. 30.8 % (42.0-52.0); HEMOGLOBIN. 10.8 g/dL (14.0-18.0); LYMPHOCYTES % 22.4 % (20.0-50.0); MEAN CORPUSCULAR HEMOGLOBIN 34.2 pg (28.0-32.0); MEAN CORPUSCULAR VOLUME 97.7 fL (80.0-94.0); MEAN PLATELET VOLUME 7.6 fl (7.4-10.4); MONOCYTES % 11.1 % (2.0-8.0); NEUTROPHILS % 61.4 % (40.0-76.0); PLATELET 90 x1000/uL (130-400); RED BLOOD CELL COUNT 3.16 mill/uL (4.7-6.1); RED CELL DISTRIBUTION WIDTH 13.9 % (11.6-14.6); WHITE BLOOD COUNT 3.5 x1000/uL (4.5-11.0)
[2024-05-03 20:04] LABS: CHLORIDE 99 mEq/L (98-107); POTASSIUM 3.8 mEq/L (3.5-5.1); SODIUM 135 mEq/L (136-145)
[2024-05-03 20:05] LABS: CALCIUM 8.9 mg/dL (8.7-10.4); CARBON DIOXIDE 27 mEq/L (21-32)
[2024-05-03 20:10] LABS: GLUCOSE 72 mg/dL (70-105); UREA NITROGEN BLOOD 30 mg/dL (9-23)
== END 2024-05-03 22:50 | disposition left against medical advice (07) ==
LOC: ER 17:42 → EDBEDREQ 21:32 → EDBEDREQTM 21:32 → ER 22:50
DX: T83.018A Breakdown (mechanical) of other urinary catheter, initial encounter (principal); I12.0 Hypertensive chronic kidney disease with stage 5 chronic kidney disease or end stage renal disease; N18.6 End stage renal disease; Z99.2 Dependence on renal dialysis; Z79.899 Other long term (current) drug therapy; X58.XXXA Exposure to other specified factors, initial encounter; Y93.89 Activity, other specified; Y92.89 Other specified places as the place of occurrence of the external cause; Y99.8 Other external cause status
CPT/HCPCS: 36415; 71045; 80048; 83735; 85025; 93005; 99285

== ENCOUNTER 2024-05-04 06:05 | Emergency (ER) | payer OTHER ==
[~2024-05-04] VITALS: Ht 170.2 cm; Wt 82.0 kg
[2024-05-04 06:22] VITALS: O2SAT 67
[2024-05-04 07:11] LABS: BASOPHILS % 0.7 % (0.0-2.0); HEMATOCRIT. 31.5 % (42.0-52.0); HEMOGLOBIN. 10.8 g/dL (14.0-18.0); LYMPHOCYTES % 22.9 % (20.0-50.0); MEAN CORPUSCULAR HEMOGLOBIN 33.6 pg (28.0-32.0); MEAN CORPUSCULAR HGB CONC 34.2 g/dL (31.0-37.0); MEAN CORPUSCULAR VOLUME 98.1 fL (80.0-94.0); MEAN PLATELET VOLUME 7.6 fl (7.4-10.4); MONOCYTES % 10.4 % (2.0-8.0); PLATELET 80 x1000/uL (130-400); RED BLOOD CELL COUNT 3.21 mill/uL (4.7-6.1); RED CELL DISTRIBUTION WIDTH 13.9 % (11.6-14.6); WHITE BLOOD COUNT 3.4 x1000/uL (4.5-11.0)
[2024-05-04 07:15] LABS: CALCIUM 8.8 mg/dL (8.7-10.4)
[2024-05-04 07:29] LABS: PROTHROMBIN TIME 11.3 sec (9.6-11.0)
[2024-05-04 08:01] LABS: CREATININE 7.8 mg/dL (0.6-1.3)
[2024-05-04 10:00] VITALS: BP 108/72; PULSE 64; RESP 12; TEMP 36.66960; O2SAT 100
== END 2024-05-04 10:10 | disposition home or self-care (01) ==
LOC: ER 06:05
DX: T82.9XXA Unspecified complication of cardiac and vascular prosthetic device, implant and graft, initial encounter (principal); I10 Essential (primary) hypertension; N28.9 Disorder of kidney and ureter, unspecified; Z79.899 Other long term (current) drug therapy; Z98.890 Other specified postprocedural states; Z86.73 Personal history of transient ischemic attack (TIA), and cerebral infarction without residual deficits; Z86.59 Personal history of other mental and behavioral disorders
CPT/HCPCS: 80048; 85025; 85610; 36415; 93005; 99284; J1642; Z7610 ×2

== ENCOUNTER 2025-03-14 14:43 | Inpatient (IN) | payer OTHER ==
[~2025-03-14] VITALS: Ht 172.7 cm; Wt 91.6 kg
[2025-03-14] VITALS (10 sets, daily range): BP systolic 112–127; BP diastolic 68–87; PULSE 59–66; RESP 12–15; TEMP 36.7–36.9184; O2SAT 96–97
[~2025-03-14 14:43] MED LIST changes: +GABA-1180 MT; -GABA-532 MT; +LACT10SO7 MT
[2025-03-14] MEDS: METHOCARBAMOL 500MG TABLET PO ONE (15:27)
[2025-03-14] MEDS: ACETAMINOPHEN 500MG TABLET PO ONE (15:27)
[2025-03-14 15:48] LABS: HEMATOCRIT. 30.3 % (42.0-52.0); HEMOGLOBIN. 10.5 g/dL (14.0-18.0); MEAN PLATELET VOLUME 7.5 fl (7.4-10.4); PLATELET 95 x1000/uL (130-400); RED BLOOD CELL COUNT 3.10 mill/uL (4.7-6.1); RED CELL DISTRIBUTION WIDTH 14.8 % (11.6-14.6)
[2025-03-14 16:02] LABS: INR 1.1
[2025-03-14 16:03] LABS: TROPONIN I HIGH SENSITIVITY 4 ng/L (3.0-53); UREA NITROGEN BLOOD 16 mg/dL (9-23)
[2025-03-14 16:05] LABS: ASPARTATE AMINOTRANSFERASE 24 IU/L (<34); BILIRUBIN DIRECT 0.4 mg/dL (<=3.0); BILIRUBIN TOTAL 0.9 mg/dL (0.1-1.0); PROTEIN TOTAL 6.6 g/dL (6.0-8.3)
[2025-03-14 16:09] LABS: CREATININE 5.4 mg/dL (0.6-1.3)
[2025-03-14 16:51] LABS: BAND% 2.0 % (1.0-6.0); EOSINOPHILS % MANUAL 2.0 % (0.0-5.0); LYMPHOCYTES % MANUAL 6.0 % (20.0-50.0); MONOCYTES % MANUAL 7.0 % (2.0-8.0); NEUTROPHILS % MANUAL 83.0 % (45.0-75.0); PLATELET ESTIMATE DECREASED
[2025-03-14] MEDS: MORPHINE SULFATE 4 MG/ML INJ (FOR IV/IM USE) IV ONE (19:12)
[2025-03-14] MEDS ORDERED: NICARDIPINE 100 MG in SODIUM CHLORIDE 0.9% 60 ML IV PRN (22:30)
[2025-03-15] VITALS (47 sets, daily range): BP systolic 87–142; BP diastolic 54–112; PULSE 56–69; RESP 9–23; TEMP 36.6–36.9; O2SAT 93–98
[2025-03-15] MEDS: MORPHINE SULFATE 2 MG/ML INJ (NOT FOR IM USE) IV PRN (03:30)
[2025-03-15 06:34] LABS: PLATELET 79 x1000/uL (130-400); RED BLOOD CELL COUNT 3.09 mill/uL (4.7-6.1); RED CELL DISTRIBUTION WIDTH 14.8 % (11.6-14.6)
[2025-03-15] MEDS ORDERED: SODIUM ZIRCONIUM CYCLOSILICATE 10GM/PACKET PO NR (06:45)
[2025-03-15] MEDS ORDERED: SODIUM BICARBONATE 8.4% 50MEQ/50ML SYR IV NR (06:45)
[2025-03-15] MEDS ORDERED: CALCIUM CHLORIDE 1GM/10ML SYR IV NR (06:45)
[2025-03-15] MEDS ORDERED: DEXTROSE 50% WATER 50ML SYRINGE IV NR (06:45)
[2025-03-15] MEDS ORDERED: INSULIN REGULAR (HUMULIN R) 1000UNITS/10ML VIAL IV NR (06:45)
[2025-03-15 06:47] LABS: UREA NITROGEN BLOOD 25.0 mg/dL (9-23)
[2025-03-15 06:57] LABS: CREATININE 6.6 mg/dL (0.6-1.3)
[2025-03-15] MEDS ORDERED: LEVETIRACETAM 1000MG PREMIX 100 ML IV SCH (09:00)
[2025-03-15] MEDS ORDERED: LEVETIRACETAM 1,500MG in NACL 100ML PREMIX IV SCH (10:00)
[2025-03-15] MEDS: LEVETIRACETAM 1500MG PREMIX 100 ML IV SCH (11:52)
[2025-03-15] MEDS ORDERED: NALOXONE HCL 0.4MG/ML VIAL IV PRN (12:00)
[2025-03-15] MEDS ORDERED: ONDANSETRON HCL 4MG/2ML INJ IV PRN (15:15)
[2025-03-16] VITALS (12 sets, daily range): BP systolic 100–131; BP diastolic 53–74; PULSE 60–75; RESP 16–20; TEMP 36–36.7; O2SAT 95–98
[2025-03-16] MEDS ORDERED: HYDROCODONE/ACETAMINOPHEN 10/325MG TABLET PO PRN (01:15)
[2025-03-16] MEDS: ACETAMINOPHEN 325MG TABLET PO PRN (16:18)
== END 2025-03-16 19:08 | disposition home or self-care (01) | DRG 44 ==
LOC: ER 14:43 → MICUNO 19:54 → EDBEDREQTM 20:07 → EDBEDREQ 20:07 → 8EST 03-15 16:45
PROVIDERS: ADMIT Internal Medicine; ATTEND Internal Medicine
PROC: 5A1D70Z Performance of Urinary Filtration, Intermittent, Less than 6 Hours Per Day (ICD-10-PCS; principal; 2025-03-16)
DX: I62.00 Nontraumatic subdural hemorrhage, unspecified (principal); D61.818 Other pancytopenia; N18.6 End stage renal disease; I12.0 Hypertensive chronic kidney disease with stage 5 chronic kidney disease or end stage renal disease; G40.901 Epilepsy, unspecified, not intractable, with status epilepticus; D63.8 Anemia in other chronic diseases classified elsewhere; K74.60 Unspecified cirrhosis of liver; D50.9 Iron deficiency anemia, unspecified; E87.5 Hyperkalemia; Z99.2 Dependence on renal dialysis; Z86.73 Personal history of transient ischemic attack (TIA), and cerebral infarction without residual deficits; Z91.199 Patient's noncompliance with other medical treatment and regimen due to unspecified reason
CPT/HCPCS: 36415; 71045; 80048; 80076; 83880; 84484; 85025; 85027; 90935; 93005; 96374; 99291; 99292; A6261; J1953; J2270

== ENCOUNTER 2025-05-16 16:05 | Inpatient (IN) | payer MEDICAID, OTHER ==
[~2025-05-16] VITALS: Ht 152.4 cm; Wt 99.8 kg
[2025-05-16] MEDS ORDERED: VANCOMYCIN 1G PREMIX 200 ML IV ONE (16:30)
[2025-05-16 16:35] VITALS: O2SAT 99
[2025-05-16] MEDS: CEFTRIAXONE 1GM/50ML 50 ML IV ONE (17:18)
[2025-05-16 17:28] LABS: BASOPHILS % 0.6 % (0.0-2.0); EOSINOPHILS % 2.1 % (0.0-5.0); HEMATOCRIT. 29.6 % (42.0-52.0); HEMOGLOBIN. 10.1 g/dL (14.0-18.0); LYMPHOCYTES % 7.6 % (20.0-50.0); MEAN PLATELET VOLUME 7.1 fl (7.4-10.4); MONOCYTES % 11.9 % (2.0-8.0); NEUTROPHILS % 77.8 % (40.0-76.0); PLATELET 91 x1000/uL (130-400); RED BLOOD CELL COUNT 3.12 mill/uL (4.7-6.1); RED CELL DISTRIBUTION WIDTH 15.3 % (11.6-14.6)
[2025-05-16 17:38] LABS: INR 1.0
[2025-05-16 17:50] LABS: UREA NITROGEN BLOOD 18 mg/dL (9-23)
[2025-05-16 17:51] LABS: ASPARTATE AMINOTRANSFERASE 40 IU/L (<34)
[2025-05-16 17:52] LABS: BILIRUBIN DIRECT 0.5 mg/dL (<=3.0); BILIRUBIN TOTAL 1.2 mg/dL (0.1-1.0); PROTEIN TOTAL 6.9 g/dL (6.0-8.3)
[2025-05-16 17:57] LABS: CREATININE 5.6 mg/dL (0.6-1.3)
[2025-05-16] MEDS: PIPERACILLIN/TAZO 3.375G/50ML 50 ML IV STA (18:07)
[2025-05-16] MEDS ORDERED: ACETAMINOPHEN 325MG TABLET PO PRN (20:15)
[2025-05-16] MEDS ORDERED: CLONIDINE 0.1MG TABLET PO PRN (20:15)
[2025-05-16] MEDS ORDERED: GUAIFENESIN 200MG/10ML SUGAR FREE UDC PO PRN (20:15)
[2025-05-16] MEDS ORDERED: IPRATROPIUM/ALBUTEROL 0.5-3(2.5)MG/3ML NEB HHN PRN (20:15)
[2025-05-16] MEDS ORDERED: DOCUSATE SODIUM 100MG CAPSULE PO PRN (20:15)
[2025-05-16] MEDS ORDERED: CEFEPIME 1GM IN DEXT 5% 50ML IV SCH (20:15)
[2025-05-16 22:01] VITALS: BP 114/49; PULSE 66; RESP 18; TEMP 36.4; O2SAT 97
[2025-05-16] MEDS: CEFEPIME 1GM PREMIX 50ML IV SCH (22:46)
[2025-05-16] MEDS ORDERED: *PATIENT'S OWN MEDICATION STORAGE XX SCH (23:45)
[2025-05-16] MEDS: VANCOMYCIN 2GM PMX (XELLIA) 400 ML IV SCH (23:50)
[2025-05-17] VITALS (7 sets, daily range): BP systolic 100–114; BP diastolic 47–69; PULSE 58–79; RESP 17–18; TEMP 36.2–36.8; O2SAT 95–100
[2025-05-17 08:17] LABS: BASOPHILS % 0.7 % (0.0-2.0); EOSINOPHILS % 3.1 % (0.0-5.0); HEMATOCRIT. 29.6 % (42.0-52.0); HEMOGLOBIN. 9.9 g/dL (14.0-18.0); LYMPHOCYTES % 19.0 % (20.0-50.0); MEAN PLATELET VOLUME 7.3 fl (7.4-10.4); MONOCYTES % 14.8 % (2.0-8.0); NEUTROPHILS % 62.4 % (40.0-76.0); PLATELET 79 x1000/uL (130-400); RED BLOOD CELL COUNT 3.04 mill/uL (4.7-6.1); RED CELL DISTRIBUTION WIDTH 15.6 % (11.6-14.6)
[2025-05-17 08:29] LABS: UREA NITROGEN BLOOD 19.0 mg/dL (9-23)
[2025-05-17 08:31] LABS: PHOSPHORUS 4.8 mg/dL (2.5-4.9)
[2025-05-17 08:35] LABS: CREATININE 6.4 mg/dL (0.6-1.3)
[2025-05-17] MEDS: SPIRONOLACTONE 50MG TABLET PO SCH (09:00)
[2025-05-17] MEDS: LEVETIRACETAM 500MG TABLET PO SCH (09:01)
[2025-05-17] MEDS: CLOPIDOGREL 75MG TABLET PO SCH (09:01)
[2025-05-17] MEDS ORDERED: LIDOCAINE HCL 1% 10 MG/ML 10ML VIAL ONE (11:50)
[2025-05-17] MEDS: PANTOPRAZOLE 40MG DR TABLET PO SCH (12:07)
[2025-05-17] MEDS ORDERED: LORAZEPAM 2MG/ML UD SYRINGE IV PRN (16:45)
[2025-05-17] MEDS: CEFEPIME 1GM PREMIX 50ML IV SCH (21:24)
[2025-05-17] MEDS: ACETAMINOPHEN 325MG TABLET PO PRN (23:28)
[2025-05-18] VITALS (11 sets, daily range): BP systolic 103–137; BP diastolic 55–78; PULSE 60–72; RESP 17–20; TEMP 36.1–36.55848; O2SAT 62–99
[2025-05-18 07:04] LABS: BASOPHILS % 0.7 % (0.0-2.0); EOSINOPHILS % 3.5 % (0.0-5.0); HEMATOCRIT. 28.0 % (42.0-52.0); HEMOGLOBIN. 9.6 g/dL (14.0-18.0); LYMPHOCYTES % 28.7 % (20.0-50.0); MEAN PLATELET VOLUME 7.0 fl (7.4-10.4); MONOCYTES % 11.6 % (2.0-8.0); NEUTROPHILS % 55.5 % (40.0-76.0); PLATELET 82 x1000/uL (130-400); RED BLOOD CELL COUNT 2.97 mill/uL (4.7-6.1); RED CELL DISTRIBUTION WIDTH 15.2 % (11.6-14.6)
[2025-05-18] MEDS ORDERED: LIDOCAINE HCL 1% 10 MG/ML 10ML VIAL ONE (07:20)
[2025-05-18 07:32] LABS: BILIRUBIN TOTAL 1.0 mg/dL (0.1-1.0); PROTEIN TOTAL 5.7 g/dL (6.0-8.3)
[2025-05-18 07:34] LABS: UREA NITROGEN BLOOD 26 mg/dL (9-23)
[2025-05-18 07:35] LABS: ASPARTATE AMINOTRANSFERASE 30 IU/L (<34)
[2025-05-18 07:36] LABS: BILIRUBIN DIRECT 0.5 mg/dL (<=3.0); PHOSPHORUS 5.8 mg/dL (2.5-4.9)
[2025-05-18 08:16] LABS: FOLIC ACID (FOLATE) SERUM 7.48 ng/mL (>5.38)
[2025-05-18 08:18] LABS: VITAMIN B12 SERUM 434 pg/mL (211-911)
[2025-05-18 08:27] LABS: CREATININE 7.4 mg/dL (0.6-1.3)
[2025-05-18] MEDS: FOLIC ACID/VITAMIN B COMP W-C TABLET PO SCH (09:08)
[2025-05-18 20:07] LABS: TROPONIN I HIGH SENSITIVITY 5 ng/L (3.0-53)
[2025-05-18] MEDS ORDERED: VANCOMYCIN 1G PREMIX 200 ML IV SCH (22:00)
[2025-05-19] VITALS: BP 132/73; PULSE 69; RESP 20; TEMP 36.6; O2SAT 100
[2025-05-19 04:00] VITALS: BP 114/67; PULSE 65; RESP 19; TEMP 36.6; O2SAT 98
[2025-05-19 06:29] LABS: PLATELET 88 x1000/uL (130-400); RED BLOOD CELL COUNT 2.98 mill/uL (4.7-6.1); RED CELL DISTRIBUTION WIDTH 15.1 % (11.6-14.6)
[2025-05-19 06:46] LABS: UREA NITROGEN BLOOD 24.0 mg/dL (9-23)
[2025-05-19 06:49] LABS: CREATININE 6.4 mg/dL (0.6-1.3)
[2025-05-19 08:00] VITALS: BP 107/65; PULSE 68; RESP 17; TEMP 37.4; O2SAT 98
[2025-05-19 12:00] VITALS: BP 104/52; PULSE 64; RESP 18; TEMP 36.6; O2SAT 97
[2025-05-19 16:00] VITALS: BP 114/61; PULSE 65; RESP 18; TEMP 37.1; O2SAT 97
[2025-05-19] MEDS: POTASSIUM CHLORIDE 20MEQ TABLET SR PO NR (17:43)
[2025-05-19 20:00] VITALS: BP 112/56; PULSE 63; RESP 20; TEMP 36.6; O2SAT 98
[2025-05-20 00:51] VITALS: BP 112/57; PULSE 66; RESP 20; TEMP 36.4; O2SAT 100
[2025-05-20 04:00] VITALS: BP 100/52; PULSE 63; RESP 16; TEMP 36.6; O2SAT 94
[2025-05-20 07:01] LABS: BASOPHILS % 0.8 % (0.0-2.0); EOSINOPHILS % 5.1 % (0.0-5.0); HEMATOCRIT. 27.2 % (42.0-52.0); HEMOGLOBIN. 9.4 g/dL (14.0-18.0); LYMPHOCYTES % 27.1 % (20.0-50.0); MEAN PLATELET VOLUME 6.9 fl (7.4-10.4); MONOCYTES % 12.0 % (2.0-8.0); NEUTROPHILS % 55.0 % (40.0-76.0); PLATELET 83 x1000/uL (130-400); RED BLOOD CELL COUNT 2.91 mill/uL (4.7-6.1); RED CELL DISTRIBUTION WIDTH 15.1 % (11.6-14.6)
[2025-05-20 07:33] LABS: UREA NITROGEN BLOOD 30 mg/dL (9-23)
[2025-05-20 07:35] LABS: PHOSPHORUS 6.2 mg/dL (2.5-4.9)
[2025-05-20 08:00] VITALS: BP 116/57; PULSE 73; RESP 19; TEMP 36.4; O2SAT 98
[2025-05-20 08:50] LABS: CREATININE 7.9 mg/dL (0.6-1.3)
[2025-05-20 12:00] VITALS: BP 96/55; PULSE 62; RESP 17; TEMP 36.6; O2SAT 98
[2025-05-20 16:00] VITALS: BP 101/57; PULSE 68; RESP 18; TEMP 36.7; O2SAT 98
[2025-05-20 20:00] VITALS: BP 102/55; PULSE 61; RESP 20; TEMP 36.5; O2SAT 97
[2025-05-21] VITALS (10 sets, daily range): BP systolic 95–135; BP diastolic 54–77; PULSE 57–77; RESP 16–20; TEMP 36.3–36.8; O2SAT 96–99
[2025-05-21] MEDS: VANCOMYCIN 750MG/150ML (BAXTER) IV SCH (20:34)
[2025-05-22] VITALS (17 sets, daily range): BP systolic 90–150; BP diastolic 49–88; PULSE 56–65; RESP 12–19; TEMP 36.3–36.9; O2SAT 95–100
[2025-05-22 08:09] LABS: UREA NITROGEN BLOOD 22 mg/dL (9-23)
[2025-05-22 08:11] LABS: ASPARTATE AMINOTRANSFERASE 32 IU/L (<34); BILIRUBIN TOTAL 1.3 mg/dL (0.1-1.0); PROTEIN TOTAL 5.8 g/dL (6.0-8.3)
[2025-05-22 08:16] LABS: CREATININE 6.9 mg/dL (0.6-1.3)
[2025-05-22] MEDS: FENTANYL CITRATE/PF 50MCG/ML 2ML VIAL IV SCH (10:30)
[2025-05-22] MEDS ORDERED: LIDOCAINE HCL 1% 10 MG/ML 10ML VIAL ONE ×2 (10:31→10:51)
[2025-05-22] MEDS ORDERED: FENTANYL CITRATE/PF 50MCG/ML 2ML VIAL ONE (10:36)
[2025-05-23] VITALS (10 sets, daily range): BP systolic 105–135; BP diastolic 56–72; PULSE 18–75; RESP 18–20; TEMP 36.114–36.9; O2SAT 96–100
[2025-05-23] MEDS: DIPHENHYDRAMINE 50MG/ML VIAL IV NR (00:09)
[2025-05-23 08:11] LABS: BASOPHILS % 0.9 % (0.0-2.0); EOSINOPHILS % 5.2 % (0.0-5.0); HEMATOCRIT. 25.9 % (42.0-52.0); HEMOGLOBIN. 8.9 g/dL (14.0-18.0); LYMPHOCYTES % 24.8 % (20.0-50.0); MEAN PLATELET VOLUME 7.3 fl (7.4-10.4); MONOCYTES % 13.3 % (2.0-8.0); NEUTROPHILS % 55.8 % (40.0-76.0); PLATELET 84 x1000/uL (130-400); RED BLOOD CELL COUNT 2.75 mill/uL (4.7-6.1); RED CELL DISTRIBUTION WIDTH 14.8 % (11.6-14.6)
[2025-05-23 08:22] LABS: UREA NITROGEN BLOOD 34.0 mg/dL (9-23)
[2025-05-23 08:50] LABS: CREATININE 8.2 mg/dL (0.6-1.3)
[2025-05-24] VITALS: BP 118/60; PULSE 89; RESP 20; TEMP 36.8; O2SAT 98
[2025-05-24 04:00] VITALS: BP 102/53; PULSE 58; RESP 20; TEMP 37; O2SAT 97
[2025-05-24 08:00] VITALS: BP 108/59; PULSE 72; RESP 18; TEMP 36.6; O2SAT 97
[2025-05-24 10:15] VITALS: BP 133/74; PULSE 69; RESP 20; TEMP 97.6
== END 2025-05-24 11:54 | disposition home or self-care (01) | DRG 711 ==
LOC: ER 16:05 → 8WST 18:25 → ENRESERV 20:07
PROVIDERS: ADMIT Internal Medicine; ATTEND Internal Medicine
PROC: 05PY03Z Removal of Infusion Device from Upper Vein, Open Approach (ICD-10-PCS; 2025-05-17)
PROC: 4A00X4Z Measurement of Central Nervous Electrical Activity, External Approach (ICD-10-PCS; principal; 2025-05-18)
PROC: 02HV33Z Insertion of Infusion Device into Superior Vena Cava, Percutaneous Approach (ICD-10-PCS; 2025-05-18)
PROC: B5181ZA Fluoroscopy of Superior Vena Cava using Low Osmolar Contrast, Guidance (ICD-10-PCS; 2025-05-18)
PROC: B548ZZA Ultrasonography of Superior Vena Cava, Guidance (ICD-10-PCS; 2025-05-18)
PROC: 5A1D70Z Performance of Urinary Filtration, Intermittent, Less than 6 Hours Per Day (ICD-10-PCS; 2025-05-18)
PROC: 5A1D70Z Performance of Urinary Filtration, Intermittent, Less than 6 Hours Per Day (ICD-10-PCS; 2025-05-21)
PROC: 06PY03Z Removal of Infusion Device from Lower Vein, Open Approach (ICD-10-PCS; 2025-05-22)
PROC: 02HV33Z Insertion of Infusion Device into Superior Vena Cava, Percutaneous Approach (ICD-10-PCS; 2025-05-22)
PROC: 0JH63XZ Insertion of Tunneled Vascular Access Device into Chest Subcutaneous Tissue and Fascia, Percutaneous Approach (ICD-10-PCS; 2025-05-22)
PROC: B5181ZA Fluoroscopy of Superior Vena Cava using Low Osmolar Contrast, Guidance (ICD-10-PCS; 2025-05-22)
PROC: 5A1D70Z Performance of Urinary Filtration, Intermittent, Less than 6 Hours Per Day (ICD-10-PCS; 2025-05-23)
DX: T80.211A Bloodstream infection due to central venous catheter, initial encounter (principal); I13.2 Hypertensive heart and chronic kidney disease with heart failure and with stage 5 chronic kidney disease, or end stage renal disease; A41.1 Sepsis due to other specified staphylococcus; D61.818 Other pancytopenia; N18.6 End stage renal disease; I50.9 Heart failure, unspecified; E83.39 Other disorders of phosphorus metabolism; E87.1 Hypo-osmolality and hyponatremia; K70.30 Alcoholic cirrhosis of liver without ascites; K76.6 Portal hypertension; Z99.2 Dependence on renal dialysis; G40.909 Epilepsy, unspecified, not intractable, without status epilepticus; D53.9 Nutritional anemia, unspecified; F32.A Depression, unspecified; F10.20 Alcohol dependence, uncomplicated; G62.9 Polyneuropathy, unspecified; R16.1 Splenomegaly, not elsewhere classified; E87.6 Hypokalemia; F17.210 Nicotine dependence, cigarettes, uncomplicated; Y83.8 Other surgical procedures as the cause of abnormal reaction of the patient, or of later complication, without mention of misadventure at the time of the procedure; Z86.73 Personal history of transient ischemic attack (TIA), and cerebral infarction without residual deficits; Z79.899 Other long term (current) drug therapy; Y92.89 Other specified places as the place of occurrence of the external cause
CPT/HCPCS: 36415; 36558; 36589; 71045; 76700; 77001; 80048; 80053; 80076; 80202; 82105; 82607; 82728; 82746; 83036; 83540; 83550; 83605; 83735; 84100; 84145; 84484; 85025; 85027; 86850; 86900; 87077; 87186; 90935; 93005; 93970; 95816; 96365; 99152; 99153; 99285; C1725; C1750; C1752; C1769; J0692; J0696; J1200; J1642; J1644; J2003; J2543; J3010; J3373; G0500

== ENCOUNTER 2025-05-25 17:41 | Inpatient (IN) | payer OTHER ==
[~2025-05-25] VITALS: Ht 170.2 cm; Wt 70.0 kg
[~2025-05-25 17:41] MED LIST changes: -ALD50 PO; -CLOP-31 MT; -FURO-151 MT; -LEVE1000 MT
[2025-05-25 17:43] VITALS: O2SAT 98
[2025-05-25 18:30] LABS: BASOPHILS % 0.9 % (0.0-2.0); EOSINOPHILS % 3.0 % (0.0-5.0); HEMATOCRIT. 26.4 % (42.0-52.0); HEMOGLOBIN. 9.2 g/dL (14.0-18.0); LYMPHOCYTES % 14.8 % (20.0-50.0); MEAN PLATELET VOLUME 7.1 fl (7.4-10.4); MONOCYTES % 11.8 % (2.0-8.0); NEUTROPHILS % 69.5 % (40.0-76.0); PLATELET 78 x1000/uL (130-400); RED BLOOD CELL COUNT 2.79 mill/uL (4.7-6.1); RED CELL DISTRIBUTION WIDTH 14.5 % (11.6-14.6)
[2025-05-25 18:37] LABS: INR 1.1
[2025-05-25 18:43] LABS: UREA NITROGEN BLOOD 17 mg/dL (9-23)
[2025-05-25 18:44] LABS: ASPARTATE AMINOTRANSFERASE 38 IU/L (<34); BILIRUBIN DIRECT 0.5 mg/dL (<=3.0)
[2025-05-25 18:45] LABS: BILIRUBIN TOTAL 1.2 mg/dL (0.1-1.0); PROTEIN TOTAL 6.5 g/dL (6.0-8.3)
[2025-05-25 18:46] LABS: CREATININE 5.5 mg/dL (0.6-1.3)
[2025-05-25] MEDS: MORPHINE SULFATE 4 MG/ML INJ (FOR IV/IM USE) IV ONE ×2 (19:00→19:54)
[2025-05-25] MEDS: ONDANSETRON HCL 4MG/2ML INJ IV ONE (20:16)
[2025-05-25] MEDS ORDERED: ONDANSETRON HCL 4MG/2ML INJ IV PRN (22:15)
[2025-05-25] MEDS ORDERED: ACETAMINOPHEN 325MG TABLET PO PRN (22:15)
[2025-05-25] MEDS ORDERED: CLONIDINE 0.1MG TABLET PO PRN (22:15)
[2025-05-25] MEDS ORDERED: ZOLPIDEM TARTRATE 5MG TABLET PO PRN (22:15)
[2025-05-25] MEDS ORDERED: HYDROMORPHONE HCL/PF 1MG/ML INJ IV PRN (22:15)
[2025-05-25] MEDS ORDERED: HYDROCODONE/ACETAMINOPHEN 10/325MG TABLET PO PRN (22:15)
[2025-05-25] MEDS ORDERED: NALOXONE HCL 0.4MG/ML VIAL IV PRN (22:30)
[2025-05-25 23:56] VITALS: BP 104/56; PULSE 64; RESP 18; TEMP 36.2; O2SAT 99
[2025-05-26 01:33] VITALS: BP 104/56; PULSE 64; RESP 18; TEMP 36.1956
[2025-05-26 04:00] VITALS: BP 110/60; PULSE 70; RESP 18; TEMP 36.7; O2SAT 97
[2025-05-26] MEDS: PANTOPRAZOLE 40MG DR TABLET PO SCH (06:18)
[2025-05-26] MEDS: SODIUM CHLORIDE 0.9% 3ML FLUSH IVF SCH (06:19)
[2025-05-26 06:32] LABS: PLATELET 67 x1000/uL (130-400); RED BLOOD CELL COUNT 2.76 mill/uL (4.7-6.1); RED CELL DISTRIBUTION WIDTH 14.8 % (11.6-14.6)
[2025-05-26 08:00] VITALS: BP 95/47; PULSE 61; RESP 18; TEMP 35.8; O2SAT 98
[2025-05-26] MEDS: LEVETIRACETAM 500MG TABLET PO SCH (09:33)
[2025-05-26] MEDS: SPIRONOLACTONE 50MG TABLET PO SCH (09:34)
[2025-05-26] MEDS: FOLIC ACID/VITAMIN B COMP W-C TABLET PO SCH (09:34)
[2025-05-26] MEDS: DIPHENHYDRAMINE 50MG/ML VIAL IV PRN (10:15)
[2025-05-26 12:00] VITALS: BP 101/57; PULSE 65; RESP 18; TEMP 37.1; O2SAT 97
[2025-05-26 16:00] VITALS: BP 115/56; PULSE 60; RESP 18; TEMP 36.7; O2SAT 97
[2025-05-26 20:00] VITALS: BP 102/53; PULSE 60; RESP 18; TEMP 36.7; O2SAT 99
[2025-05-26] MEDS: ACETAMINOPHEN 325MG TABLET PO PRN (21:04)
[2025-05-27] VITALS: BP 101/50; PULSE 59; RESP 18; TEMP 36.6; O2SAT 100
[2025-05-27 04:00] VITALS: BP 105/48; PULSE 65; RESP 18; TEMP 36.8; O2SAT 96
[2025-05-27] MEDS: LACTULOSE 20G/30ML UDC PO SCH (06:46)
[2025-05-27 06:49] LABS: PLATELET 66 x1000/uL (130-400); RED BLOOD CELL COUNT 2.72 mill/uL (4.7-6.1); RED CELL DISTRIBUTION WIDTH 14.6 % (11.6-14.6)
[2025-05-27 08:32] VITALS: BP 122/73; PULSE 71; RESP 18; TEMP 36.8; O2SAT 97
== END 2025-05-27 14:20 | disposition home or self-care (01) | DRG 206 ==
LOC: ER 17:41 → 8WST 21:39 → EDBEDREQ 21:43 → EDBEDREQTM 21:43 → EDBEDREQSVC 21:43 → EDBEDREQ 21:46 → ENRESERV 22:41
PROVIDERS: ADMIT Internal Medicine; ATTEND Internal Medicine
DX: T82.41XA Breakdown (mechanical) of vascular dialysis catheter, initial encounter (principal); I13.2 Hypertensive heart and chronic kidney disease with heart failure and with stage 5 chronic kidney disease, or end stage renal disease; I50.9 Heart failure, unspecified; N18.6 End stage renal disease; K74.60 Unspecified cirrhosis of liver; D64.9 Anemia, unspecified; G40.909 Epilepsy, unspecified, not intractable, without status epilepticus; F10.10 Alcohol abuse, uncomplicated; Z86.73 Personal history of transient ischemic attack (TIA), and cerebral infarction without residual deficits; Z99.2 Dependence on renal dialysis; Y84.1 Kidney dialysis as the cause of abnormal reaction of the patient, or of later complication, without mention of misadventure at the time of the procedure; Y92.89 Other specified places as the place of occurrence of the external cause
CPT/HCPCS: 36415; 71045; 80048; 80076; 82140; 83735; 85025; 85027; 86850; 86900; 93005; 96374; 96375; 96376; 99291; A4606; J1200; J2270; J2405